=== PATIENT | male | born 1930 | race Caucasian/White ===

== ENCOUNTER 2017-09-21 22:29 | Observation (INO) | payer MEDICARE, OTHER ==
--- NOTE | 2017-09-22 | EDM.PDOC ---
ED HPI GENERAL MEDICAL PROBLEM - General Chief Complaint: Abdominal Pain Stated Complaint: CHEST PAIN Time Seen by Provider: 09/21/17 23:56 Source of Information: Reports: Patient History Limitations: Reports: No Limitations - History of Present Illness INITIAL COMMENTS - FREE TEXT/NARRATIVE: Pt arrived with pain in the lower abdoman. He was lite headed today. He was quite weak prior to leaving the home. He wa seen in the [place] ER on Friday nit. Onset: Other (Problems started Friday nit. ) Duration: Hour(s): Location: Reports: Abdomen Associated Symptoms: Reports: Other (loose stools) upper abdominal pain Pain Score (Numeric/FACES): 5 - Related Data Allergies Allergy/AdvReac Type Severity Reaction Status Date / Time etodolac [From [facility]] Allergy Rash Verified 09/21/17 22:40 Penicillins Allergy Rash Verified 09/21/17 22:40 Home Meds: Home Meds Acetaminophen [Tylenol Extra Strength] 500 mg PO Q6H PRN 03/17/15 [History] Aspirin [Low Dose Aspirin EC] 81 mg PO DAILY 03/17/15 [History] Escitalopram [Lexapro] 20 mg PO DAILY 03/17/15 [History] Insulin Lispro Prot/Lispro [HumaLOG Mix 75-25] 22 units SQ WITHBREAKFAST [History] Insulin Lispro [HumaLOG] 20 units SQ BEDTIME 03/17/15 [History] Metoprolol Tartrate [Lopressor] 25 mg PO BID 03/17/15 [History] Nitroglycerin [Nitrostat] 0.4 mg SL ASDIRECTED 03/17/15 [History] Tamsulosin [Flomax] 0.4 mg PO DAILY 03/17/15 [History] atorvaSTATin [Lipitor] 40 mg PO DAILY 03/17/15 [History] Clopidogrel Bisulfate [Clopidogrel] 75 mg PO DAILY 01/13/16 [History] Ergocalciferol (Vitamin D2) [Vitamin D2] 50,000 units PO WEEKLY 09/21/17 [ History] Furosemide 40 mg PO DAILY 09/21/17 [History] Gabapentin [Neurontin] 100 mg PO BEDTIME 09/21/17 [History] Isosorbide Mononitrate [Isosorbide Mononitrate ER] 60 mg PO DAILY 09/21/17 [ History] Past Medical History HEENT History: Reports: Cataract Cardiovascular History: Reports: Bypass, CAD, High Cholesterol, Hypertension, Stents, Other (See Below) Gastrointestinal History: Reports: Chronic Constipation, Hemorrhoids Genitourinary History: Reports: Renal Calculus Musculoskeletal History: Reports: Arthritis, Back Pain, Chronic, Neck Pain, Chronic Neurological History: Reports: Other (See Below) Other Neuro History: , broken neck, spinal stenosis Psychiatric History: Reports: Depression Endocrine/Metabolic History: Reports: Diabetes, Type II Hematologic History: Reports: Blood Transfusion(s) Dermatologic History: Reports: Other (See Below) Other Dermatologic History: dry skin - Infectious Disease History Infectious Disease History: Reports: Chicken Pox, Measles, Mumps - Past Surgical History HEENT Surgical History: Reports: Cataract Surgery Cardiovascular Surgical History: Reports: AAA Repair, Coronary Artery Bypass, Coronary Artery Stent, Other (See Below) Other Cardiovascular Surgeries/Procedures: x5 stents placed Social & Family History - Tobacco Use Smoking Status *Q: Never Smoker - Caffeine Use Caffeine Use: Reports: Coffee - Recreational Drug Use Recreational Drug Use: No ED ROS GENERAL - Review of Systems Review Of Systems: See Below Constitutional: Reports: Weakness HEENT: Reports: No Symptoms Respiratory: Reports: No Symptoms Cardiovascular: Reports: Lightheadedness Endocrine: Reports: No Symptoms GI/Abdominal: Reports: Abdominal Pain, Diarrhea : Reports: No Symptoms Musculoskeletal: Reports: No Symptoms Skin: Reports: No Symptoms Neurological: Reports: Dizziness, Weakness ED EXAM, GI/ABD - Physical Exam Exam: See Below Text/Narrative:: pt arrived after having sevral episodes of dizZiness and near syncope. He was seen at the er in [place] Friday and there was a possiblity of a tia. Exam Limited By: No Limitations General Appearance: Alert, No Apparent Distress, Other ( Pupils are equal and reactive. ) Ears: Normal TMs Nose: Normal Inspection Throat/Mouth: Normal Inspection Head: Atraumatic Neck: Normal Inspection Respiratory/Chest: No Respiratory Distress Cardiovascular: Regular Rate, Rhythm, Systolic Murmur, Other (pt has a rt bundle branch block on his ekg. He has a loud systolic murmur--probable aortic stenosis) GI/Abdominal Exam: Soft, Tender, Other (Pt has tenderness in the lower abdoman. ) (Male) Exam: Deferred Rectal (Males) Exam: Deferred Back Exam: Normal Inspection Extremities: Normal Inspection Neurological: Alert, Oriented, Normal Cognition Course - Vital Signs Last Recorded V/S: Last Vital Signs Temp 36.3 C 09/21/17 23:05 Pulse 61 09/21/17 23:05 Resp 14 09/21/17 23:05 BP 187/64 H 09/21/17 23:05 Pulse Ox 97 09/21/17 23:05 Orthostatic Blood Pressure [ 116/43 Standing] Orthostatic Blood Pressure [ 173/56 Sitting] Orthostatic Blood Pressure [ 193/67 Supine] - Orders/Labs/Meds Orders: Active Orders 24 hr Category Date Time Status EKG Documentation Completion [RC] ASDIRECTED Care 09/21/17 23:06 Active Orthostatic Vital Signs [RC] ASDIRECTED Care 09/21/17 23:47 Active Abdomen Pelvis wo Cont [CT] Stat Exams 09/21/17 23:55 Taken Abdomen Pelvis wo Cont [CT] Stat Exams 09/22/17 00:10 Taken Abdomen Series w Chest 1V [CR] Urgent Exams 09/21/17 23:43 Stop Req Chest 1V Frontal [CR] Stat Exams 09/22/17 01:06 Ordered UA W/MICROSCOPIC [URIN] Urgent Lab 09/22/17 00:05 Ordered EKG 12 Lead [EK] Routine Ther 09/21/17 23:06 Ordered Labs: Laboratory Tests 09/21/17 09/21/17 09/21/17 Range/Units 23:28 23:28 23:28 WBC 7.8 (4.5-11.0) K/uL RBC 4.53 (4.30-5.90) M/uL Hgb 13.5 (12.0-15.0) g/dL Hct 39.8 L (40.0-54.0) % MCV 88 (80-98) fL MCH 30 (27-31) pg MCHC 34 (32-36) % Plt Count 150 (150-400) K/uL Neut % (Auto) 73 H (36-66) % Lymph % (Auto) 14 L (24-44) % [place] % (Auto) 11 H (2-6) % Eos % (Auto) 2 (2-4) % Baso % (Auto) 1 (0-1) % Sodium 141 (140-148) mmol/L Potassium 3.8 (3.6-5.2) mmol/L Chloride 104 (100-108) mmol/L Carbon Dioxide 29 (21-32) mmol/L Anion Gap 8.4 (5.0-14.0) mmol/L BUN 37 H (7-18) mg/dL Creatinine 2.3 H (0.8-1.3) mg/dL Est Cr Clr Drug Dosing 24.10 mL/min Estimated GFR (MDRD) 27 L (>60) Glucose 120 H (74-106) mg/dL Calcium 8.5 (8.5-10.1) mg/dL Total Bilirubin 0.5 (0.2-1.0) mg/dL AST 24 (15-37) U/L ALT 35 (12-78) U/L Alkaline Phosphatase 55 (46-116) U/L C-Reactive Protein 0.15 (0.0-0.3) mg/dL Total Protein 6.1 L (6.4-8.2) g/dL Albumin 3.1 L (3.4-5.0) g/dL Globulin 3.0 (2.3-3.5) g/dL Albumin/Globulin Ratio 1.0 L (1.2-2.2) Urine Color Urine Appearance Urine pH (4.5-8.0) Ur Specific [place] (1.008-1.030) Urine Protein (NEGATIVE) mg/dL Urine Glucose (UA) (NEGATIVE) mg/dL Urine Ketones (NEGATIVE) mg/dL Urine Occult Blood (NEGATIVE) Urine Nitrite (NEGAITVE) Urine Bilirubin (NEGATIVE) Urine Urobilinogen (NORMAL) mg/dL Ur Leukocyte Esterase (NEGATIVE) Urine RBC (0-5) Urine WBC (0-5) Ur Epithelial Cells Amorphous Sediment Urine Bacteria Urine Mucus 09/22/17 Range/Units 00:05 WBC (4.5-11.0) K/uL RBC (4.30-5.90) M/uL Hgb (12.0-15.0) g/dL Hct (40.0-54.0) % MCV (80-98) fL MCH (27-31) pg MCHC (32-36) % Plt Count (150-400) K/uL Neut % (Auto) (36-66) % Lymph % (Auto) (24-44) % [place] % (Auto) (2-6) % Eos % (Auto) (2-4) % Baso % (Auto) (0-1) % Sodium (140-148) mmol/L Potassium (3.6-5.2) mmol/L Chloride (100-108) mmol/L Carbon Dioxide (21-32) mmol/L Anion Gap (5.0-14.0) mmol/L BUN (7-18) mg/dL Creatinine (0.8-1.3) mg/dL Est Cr Clr Drug Dosing mL/min Estimated GFR (MDRD) (>60) Glucose (74-106) mg/dL Calcium (8.5-10.1) mg/dL Total Bilirubin (0.2-1.0) mg/dL AST (15-37) U/L ALT (12-78) U/L Alkaline Phosphatase (46-116) U/L C-Reactive Protein (0.0-0.3) mg/dL Total Protein (6.4-8.2) g/dL Albumin (3.4-5.0) g/dL Globulin (2.3-3.5) g/dL Albumin/Globulin Ratio (1.2-2.2) Urine Color Yellow Urine Appearance Clear Urine pH 6.0 (4.5-8.0) Ur Specific [place] 1.010 (1.008-1.030) Urine Protein 100 H (NEGATIVE) mg/dL Urine Glucose (UA) 100 H (NEGATIVE) mg/dL Urine Ketones Negative (NEGATIVE) mg/dL Urine Occult Blood Negative (NEGATIVE) Urine Nitrite Negative (NEGAITVE) Urine Bilirubin Negative (NEGATIVE) Urine Urobilinogen 1 (NORMAL) mg/dL Ur Leukocyte Esterase Negative (NEGATIVE) Urine RBC 0-5 (0-5) Urine WBC 0-5 (0-5) Ur Epithelial Cells Rare Amorphous Sediment Not seen Urine Bacteria Few Urine Mucus Not seen - Re-Assessments/Exams Free Text/Narrative Re-Assessment/Exam: 09/22/17 01:27 pt has a creatnine of 2.3 which is not new for him. He has a loud systolic murmur which may be from a aortic a stenosis. A cat scan of the abdoman was neg. His ekg showed a rt bundle branch block. In the ambulance on friday nit he had a 4 second run of vtach. will admit and mildly hydrate and look at the aortic valve issue. 09/22/17 01:31 Departure - Departure Time of Disposition: 01:32 Disposition: Admitted As Inpatient 66 Condition: Fair Clinical Impression: Systolic murmur, Postural hypotension, Renal insufficiency - Discharge Information Referrals: PCP,None [Primary Care Provider] - Forms: ED Department Discharge Care Plan Goals: admit to Dr Parikh - My Orders Last 24 Hours: My Active Orders 09/21/17 23:06 EKG Documentation Completion [RC] ASDIRECTED EKG 12 Lead [EK] Routine 09/21/17 23:43 Abdomen Series w Chest 1V [CR] Urgent 09/21/17 23:47 Orthostatic Vital Signs [RC] ASDIRECTED 09/21/17 23:55 Abdomen Pelvis wo Cont [CT] Stat 09/22/17 00:05 UA W/MICROSCOPIC [URIN] Urgent 09/22/17 00:10 Abdomen Pelvis wo Cont [CT] Stat 09/22/17 01:06 Chest 1V Frontal [CR] Stat - Assessment/Plan Last 24 Hours: My Active Orders 09/21/17 23:06 EKG Documentation Completion [RC] ASDIRECTED EKG 12 Lead [EK] Routine 09/21/17 23:43 Abdomen Series w Chest 1V [CR] Urgent 09/21/17 23:47 Orthostatic Vital Signs [RC] ASDIRECTED 09/21/17 23:55 Abdomen Pelvis wo Cont [CT] Stat 09/22/17 00:05 UA W/MICROSCOPIC [URIN] Urgent 09/22/17 00:10 Abdomen Pelvis wo Cont [CT] Stat 09/22/17 01:06 Chest 1V Frontal [CR] Stat
[2017-09-22] MEDS ORDERED: Acetaminophen 325 MG Tab PO ONE (01:43)
[2017-09-22] MEDS ORDERED: Sodium Chloride 0.9% 1,000 ML IV SCH (01:45)
[2017-09-22] MEDS ORDERED: Acetaminophen 325 MG Tab PO PRN (02:44)
[2017-09-22] MEDS: Sodium Chloride 0.9% 1,000 ML IV SCH ×2 (03:42→11:56)
[2017-09-22] MEDS ORDERED: Furosemide 40 MG Tab PO SCH (09:00)
[2017-09-22] MEDS ORDERED: Isosorbide Mononitrate 30 MG Tab.ER PO SCH (09:00)
[2017-09-22] MEDS ORDERED: CLOPIDOGREL 75 MG PO SCH (09:00)
[2017-09-22] MEDS ORDERED: atorvaSTATin 20 MG Tab PO SCH (09:00)
[2017-09-22] MEDS ORDERED: Escitalopram 20 MG Tab PO SCH (09:00)
[2017-09-22] MEDS ORDERED: Aspirin 81 MG Tab.EC PO SCH (09:00)
[2017-09-22 10:40] VITALS: BP 197/62
--- NOTE | 2017-09-22 11:17 | CR ---
Chest 1V Frontal INDICATION: dizziness FINDINGS: Comparison 10/13/2012. Sternotomy with mediastinal clips. No focal infiltrate. Chest otherwi se negative.
[2017-09-22] MEDS ORDERED: Furosemide 40 MG Tab*POM PO SCH (12:00)
[2017-09-22] MEDS ORDERED: ATORVASTATIN 40MG PO SCH (12:00)
[2017-09-22] MEDS ORDERED: ISOSORBIDE MONONITRATE 60 MG PO SCH (12:00)
[2017-09-22] MEDS ORDERED: ESCITALOPRAM 20 MG PO SCH (12:00)
--- NOTE | 2017-09-22 13:10 | HP ---
HISTORY OF PRESENT ILLNESS: An 87-year-old has had a significant coronary artery disease history along with diabetes, previous AAA repair in the past, had an episode 2 days ago when he was in restaurant, also became quite pale. He had a near syncopal episode and was complaining of abdominal pain, was brought into the emergency room in [place]. CT scan of the abdomen was unremarkable. EKG was unchanged. Thought maybe he had a TIA and have him follow up with his regular [facility] doctor. He had another episode tonight where he complained of left-sided abdominal pain, a little bit of nausea but no vomiting. No diarrhea or constipation. He thought maybe he had food poisoning, but his ate the same food, and she has had no trouble. He has had no fever. No urinary problems. He has had a history of kidney stones in the past and states that this feels different. By the time he got here, his abdominal pain was better and apparently he felt dizzy also, but has had no chest pain, although he does complain of some shortness of breath, was evaluated by emergency room physician, was noted to have significant systolic murmur. Apparently, he had an echocardiogram done at [place] about a year and a half ago, and they want him to do something further. He did not know what it was, but he was going back to [place] and did not have anything done, not sure exactly what they found. He was not sure. It sounds like he does have chronic kidney disease, and this has progressed. He had not really been drinking any alcohol, but then was drinking a couple of beers a day, but they have completely eliminated this at this point. PAST MEDICAL HISTORY: 1. Coronary artery disease, status post five-vessel CABG in the past. 2. Type 2 diabetes mellitus, on insulin. 3. Aortobifemoral graft in the past. 4. He has had a history of kidney stones, but otherwise no other abdominal surgery he states. 5. History of chronic back pain and neck pain with cervical spondylosis. 6. History of depression, possible posttraumatic stress disorder. 7. Essential hypertension. 8. Peripheral vascular disease. 9. Sleep apnea. 10.Tremor. 11.Looking at old records, it sounds like he has had stents. I do not see a history of bypass surgery, although he had first stents, and he also had bypass surgery. 12.He has also had eye surgery. MEDICATIONS: 1. Atorvastatin 40 mg daily. 2. Nitro p.r.n., but he has not had to take. 3. Lasix 40 mg daily. 4. Gabapentin 100 mg every evening. 5. Amlodipine 5 mg 2 tablets daily. 6. Vitamin D. 7. Topical triamcinolone p.r.n. 8. Bactroban p.r.n. 9. Lexapro 20 mg daily. 10.Humalog insulin 75/20. 11.Lispro insulin, not sure he is taking this. 12.Acetaminophen p.r.n. 13.Aspirin 81 mg daily. 14.Plavix 75 mg daily. ALLERGIES: TO PENICILLIN, LODINE, VALSARTAN. SOCIAL HISTORY: He is a nonsmoker. He has had a recent consumption of 2 beers a day, but this has recently been stopped. FAMILY HISTORY: Father had tremor. Mother diabetes. History of diabetes and heart disease in father. REVIEW OF SYSTEMS: Denies headaches, vision changes. Denies any chest pain, but has had some shortness of breath, a little bit of nausea but no vomiting. No diarrhea or constipation. Bloody black stools. No urinary problems reported. Denies any significant swelling in his legs. No skin problems other than above. Neurologic complaints as above. OBJECTIVE: VITAL SIGNS: Initial blood pressure was 219/74, now is 195/61, pulse 60, respirations 12 to 15, O2 sat 96% on room air. GENERAL: The patient seems to be fairly alert and oriented. Cranial nerves 2 through 12 grossly intact. Eyes are unremarkable. Pharynx is clear. NECK: No adenopathy, thyromegaly, JVD, or carotid bruits. LUNGS: Clear. HEART: Regular with a grade 3/6 systolic murmur, apparently, he has had for many years. ABDOMEN: Soft. Some slight discomfort on the left side. No mass, organomegaly palpated. No distention. Currently he has pain on exam, is better than it was earlier. EXTREMITIES: He does have some mild edema in his ankles. He does have some dry skin. Moves all extremities equally. LABORATORY DATA: White count 7.8, hemoglobin 13.5, platelets 150,000, 73% neutrophils, 14% lymphocytes, 11% monocytes. Sodium 141, potassium 3.8, chloride 104, BUN was 37, creatinine 2.3, glucose 120. Liver function was normal. Urinalysis: 0-5 white cells and red cells. He did have some sugar and protein in his urine. IMAGING DATA: CT scan of abdomen and pelvis, moderate enlargement of the prostate gland. Sigmoid diverticulosis without evidence of diverticulitis. ASSESSMENT: 1. Near-syncope, more so 2 days ago with some dizziness today, etiology uncertain, but the question of it is related to his murmur, which we will get an echocardiogram and watch him on telemetry. Apparently en route by ambulance Friday night, he had episode of short run of ventricular tachycardia. I did talk to the patient. He does desire DNR/DNI. 2. Abdominal pain. Two negative CAT scans, one here and one in [place] 2 days ago. Etiology uncertain. 3. Coronary artery disease, previous stents, bypass surgery. 4. Aortobifemoral bypass. 5. Type 2 diabetes mellitus. 6. Chronic kidney disease, which has recently worsened. PLAN: Transfers care to hospitalist service in the morning. We will admit him under observation. Anticipate less than 2 midnight stays. Winston Parikh MD /[id number]
--- NOTE | 2017-09-22 14:41 | PCM.DCSUM1 ---
Discharge Summary - Hospital Course Brief History: 87-year-old male with insulin-dependent diabetes mellitus, stage III/IV chronic kidney disease and ischemic heart disease who presented with left upper quadrant abdominal pain. He was admitted for observation and further workup. - Discharge Data Discharge Date: 09/22/17 Discharge Disposition: Home, Self-Care 01 Condition: Fair - Discharge Diagnosis/Problem(s) (1) LUQ abdominal pain SNOMED Code(s): 535162663 ICD Code: R10.12 - LEFT UPPER QUADRANT PAIN Status: Acute (2) Postural hypotension SNOMED Code(s): 29598150 ICD Code: I95.1 - ORTHOSTATIC HYPOTENSION Status: Acute (3) Stage 3 chronic kidney disease SNOMED Code(s): 877123710 ICD Code: N18.3 - CHRONIC KIDNEY DISEASE, STAGE 3 (MODERATE) Status: Chronic (4) Moderate aortic stenosis SNOMED Code(s): 97180406 ICD Code: I35.0 - NONRHEUMATIC AORTIC (VALVE) STENOSIS Status: Chronic (5) Type 2 diabetes mellitus SNOMED Code(s): 23495341 ICD Code: E11.9 - TYPE 2 DIABETES MELLITUS WITHOUT COMPLICATIONS Status: Chronic Qualifiers: Diabetes mellitus assisted insulin use: with oysterman use Diabetes mellitus complication status: with unspecified complications Qualified Code(s) : E11.8 - Type 2 diabetes mellitus with unspecified complications; Z79.4 - manager intermediate (current) use of insulin (6) HTN (hypertension) SNOMED Code(s): 69737432 ICD Code: I10 - ESSENTIAL (PRIMARY) HYPERTENSION Status: Chronic Qualifiers: Hypertension type: unspecified Qualified Code(s): I10 - Essential (primary ) hypertension - Patient Summary/Data Hospital Course: Bryson presented to the emergency room yesterday with left upper quadrant abdominal pain. He had some nausea but no vomiting or fever. Workup in the emergency room did not reveal a cause for his abdominal pain. Laboratory testing was stable and his white count was normal. CT of the abdomen did not show abnormality to explain his pain. He was admitted for observation. Overnight there were no acute issues. He did have some mild residual pain the morning after admission but this was relieved after a large bowel movement. He has not had recurrence of the pain. He has been up and walking around and does not have any symptoms of chest pain, lightheadedness or dizziness. He feels well at this time. There were no abnormalities noted on telemetry overnight. Vital signs have been stable other than intermittent elevations of his blood pressure. He did have a loud systolic murmur concerning for aortic stenosis and we did perform an echocardiogram the morning of discharge. This showed moderate aortic stenosis as well as mild to moderate aortic insufficiency. Ejection fraction is low normal at this time at around 50%. Because he has been up and walking around without symptoms I doubt that these findings were the cause for his presyncope a few nights ago and mild orthostasis yesterday. The exact cause for his abdominal pain is not entirely clear. Differential could include constipation as his pain resolved after a large bowel movement versus potentially intestinal angina versus possibly some gastritis. Because he feels well at this time I'm not going to initiate any new treatment. He does have follow-up scheduled tomorrow with his primary care physician. He has follow-up with nephrology and cardiology in the next month. He will be discharged home with his . No medication changes are made at this time. - Patient Instructions Diet: Heart Healthy Diet Activity: As Tolerated Showering/Bathing: May Shower Notify Provider of: Fever, Increased Pain Other/Special Instructions: 1. You were in the hospital for observation after an episode of left upper quadrant abdominal pain. The pain has resolved without significant intervention. The exact cause for the pain is not entirely clear but constipation could be considered. The CT scan of the abdomen did not show any acute findings. I would recommend utilizing [id number] medication such as stool softeners and/or miralax to maintain a normal bowel regimen. 2. We did complete an echocardiogram to evaluate your aortic valve. The ultrasound test of your heart showed that you have moderate aortic stenosis as well as mild to moderate aortic insufficiency. Your left ventricular function is normal to very slightly reduced at this time. You should discuss these findings with your workers compensation coordinator at your upcoming visit. 3. Please continue your other medications as previously prescribed. 4. Follow-up as scheduled with your primary care physician, kidney doctor and workers compensation coordinator. 5. Seek medical attention if you develop fever greater than 101, your abdominal pain returns and is severe or if you develop acute shortness of breath or chest pain/ pressure. - Discharge Plan Home Medications: Home Meds Acetaminophen [Tylenol Extra Strength] 500 mg PO Q6H PRN 03/17/15 [History] Aspirin [Low Dose Aspirin EC] 81 mg PO DAILY 03/17/15 [History] Escitalopram [Lexapro] 20 mg PO DAILY 03/17/15 [History] Insulin Lispro Prot/Lispro [HumaLOG Mix 75-25] 22 units SQ WITHBREAKFAST [History] Insulin Lispro [HumaLOG] 20 units SQ BEDTIME 03/17/15 [History] Metoprolol Tartrate [Lopressor] 25 mg PO BID 03/17/15 [History] Nitroglycerin [Nitrostat] 0.4 mg SL ASDIRECTED 03/17/15 [History] Tamsulosin [Flomax] 0.4 mg PO DAILY 03/17/15 [History] atorvaSTATin [Lipitor] 40 mg PO DAILY 03/17/15 [History] Clopidogrel Bisulfate [Clopidogrel] 75 mg PO DAILY 01/13/16 [History] Ergocalciferol (Vitamin D2) [Vitamin D2] 50,000 units PO WEEKLY 09/21/17 [ History] Furosemide 40 mg PO DAILY 09/21/17 [History] Gabapentin [Neurontin] 100 mg PO BEDTIME 09/21/17 [History] Isosorbide Mononitrate [Isosorbide Mononitrate ER] 60 mg PO DAILY 09/21/17 [ History] Patient Handouts: Aortic Valve Stenosis, Constipation, Adult Referrals: Noe Toscano MD [Physician] - 09/23/17 10:20 am Twin Cavazos MD [Ordering Only Provider] - 10/24/17 3:00 pm Angelita Chopra MD [Physician] - 10/15/17 2:30 pm - Discharge Summary/Plan Comment DC Time >30 min.: No (25) - Patient Data Vitals - Most Recent: Last Vital Signs Temp 35.6 C 09/22/17 14:00 Pulse 73 09/22/17 14:00 Resp 18 09/22/17 14:00 BP 197/62 H 09/22/17 10:00 Pulse Ox 96 09/22/17 14:00 Orthostatic Blood Pressure [ 116/43 Standing] Orthostatic Blood Pressure [ 173/56 Sitting] Orthostatic Blood Pressure [ 193/67 Supine] Weight - Most Recent: 81.9 kg I&O - Last 24 hours: Intake & Output 05/09/22/17 09/22/17 22:59 06:59 14:59 Intake Total 240 Output Total 300 Balance -300 240 Lab Results - Last 24 hrs: Laboratory Results - last 24 hr 09/21/17 09/21/17 09/21/17 Range/Units 23:28 23:28 23:28 WBC 7.8 (4.5-11.0) K/uL RBC 4.53 (4.30-5.90) M/uL Hgb 13.5 (12.0-15.0) g/dL Hct 39.8 L (40.0-54.0) % MCV 88 (80-98) fL MCH 30 (27-31) pg MCHC 34 (32-36) % Plt Count 150 (150-400) K/uL Neut % (Auto) 73 H (36-66) % Lymph % (Auto) 14 L (24-44) % [place] % (Auto) 11 H (2-6) % Eos % (Auto) 2 (2-4) % Baso % (Auto) 1 (0-1) % Sodium 141 (140-148) mmol/L Potassium 3.8 (3.6-5.2) mmol/L Chloride 104 (100-108) mmol/L Carbon Dioxide 29 (21-32) mmol/L Anion Gap 8.4 (5.0-14.0) mmol/L BUN 37 H (7-18) mg/dL Creatinine 2.3 H (0.8-1.3) mg/dL Est Cr Clr Drug Dosing 24.10 mL/min Estimated GFR (MDRD) 27 L (>60) Glucose 120 H (74-106) mg/dL Calcium 8.5 (8.5-10.1) mg/dL Total Bilirubin 0.5 (0.2-1.0) mg/dL AST 24 (15-37) U/L ALT 35 (12-78) U/L Alkaline Phosphatase 55 (46-116) U/L C-Reactive Protein 0.15 (0.0-0.3) mg/dL Total Protein 6.1 L (6.4-8.2) g/dL Albumin 3.1 L (3.4-5.0) g/dL Globulin 3.0 (2.3-3.5) g/dL Albumin/Globulin Ratio 1.0 L (1.2-2.2) Urine Color Urine Appearance Urine pH (4.5-8.0) Ur Specific [place] (1.008-1.030) Urine Protein (NEGATIVE) mg/dL Urine Glucose (UA) (NEGATIVE) mg/dL Urine Ketones (NEGATIVE) mg/dL Urine Occult Blood (NEGATIVE) Urine Nitrite (NEGAITVE) Urine Bilirubin (NEGATIVE) Urine Urobilinogen (NORMAL) mg/dL Ur Leukocyte Esterase (NEGATIVE) Urine RBC (0-5) Urine WBC (0-5) Ur Epithelial Cells Amorphous Sediment Urine Bacteria Urine Mucus 09/22/17 09/22/17 09/22/17 Range/Units 00:05 06:21 06:21 WBC 9.3 (4.5-11.0) K/uL RBC 4.57 (4.30-5.90) M/uL Hgb 13.4 (12.0-15.0) g/dL Hct 39.9 L (40.0-54.0) % MCV 87 (80-98) fL MCH 29 (27-31) pg MCHC 34 (32-36) % Plt Count 147 L (150-400) K/uL Neut % (Auto) (36-66) % Lymph % (Auto) (24-44) % [place] % (Auto) (2-6) % Eos % (Auto) (2-4) % Baso % (Auto) (0-1) % Sodium 139 L (140-148) mmol/L Potassium 3.8 (3.6-5.2) mmol/L Chloride 104 (100-108) mmol/L Carbon Dioxide 25 (21-32) mmol/L Anion Gap 13.8 (5.0-14.0) mmol/L BUN 34 H (7-18) mg/dL Creatinine 2.1 H (0.8-1.3) mg/dL Est Cr Clr Drug Dosing 26.39 mL/min Estimated GFR (MDRD) 30 L (>60) Glucose 207 H (74-106) mg/dL Calcium 8.3 L (8.5-10.1) mg/dL Total Bilirubin (0.2-1.0) mg/dL AST (15-37) U/L ALT (12-78) U/L Alkaline Phosphatase (46-116) U/L C-Reactive Protein (0.0-0.3) mg/dL Total Protein (6.4-8.2) g/dL Albumin (3.4-5.0) g/dL Globulin (2.3-3.5) g/dL Albumin/Globulin Ratio (1.2-2.2) Urine Color Yellow Urine Appearance Clear Urine pH 6.0 (4.5-8.0) Ur Specific [place] 1.010 (1.008-1.030) Urine Protein 100 H (NEGATIVE) mg/dL Urine Glucose (UA) 100 H (NEGATIVE) mg/dL Urine Ketones Negative (NEGATIVE) mg/dL Urine Occult Blood Negative (NEGATIVE) Urine Nitrite Negative (NEGAITVE) Urine Bilirubin Negative (NEGATIVE) Urine Urobilinogen 1 (NORMAL) mg/dL Ur Leukocyte Esterase Negative (NEGATIVE) Urine RBC 0-5 (0-5) Urine WBC 0-5 (0-5) Ur Epithelial Cells Rare Amorphous Sediment Not seen Urine Bacteria Few Urine Mucus Not seen Med Orders - Current: Current Medications Acetaminophen (Tylenol) 650 mg PO Q4H PRN PRN Reason: Pain (Mild 1-3)/fever Aspirin (Halfprin) 81 mg PO DAILY [facility] Last Admin: 09/22/17 12:00 Dose: Not Given Clopidogrel Bisulfate (Plavix) 75 mg PO DAILY [facility] [place] Last Admin: 09/22/17 12:00 Dose: 75 mg Escitalopram Oxalate (Lexapro) 20 mg PO DAILY [facility] [place] Last Admin: 09/22/17 12:02 Dose: 20 mg Furosemide (Lasix) 40 mg PO DAILY [facility] Last Admin: 09/22/17 12:01 Dose: 40 mg Gabapentin (Neurontin) 100 mg PO BEDTIME [facility] Sodium Chloride (Normal Saline) 1,000 mls @ 100 mls/hr IV ASDIRECTED [facility] Last Admin: 09/22/17 11:56 Dose: 100 mls/hr Atorvastatin 40mg 1 each PO DAILY [facility] [place] Last Admin: 09/22/17 12:02 Dose: 1 each Isosorbide Mononitrate Er 60mg *Pom* 1 each PO DAILY@0730 [facility] Last Admin: 09/22/17 12:02 Dose: 1 each Discontinued Medications Acetaminophen (Tylenol) 650 mg PO NOW ONE Stop: 09/22/17 01:44 Last Admin: 09/22/17 02:08 Dose: 650 mg Atorvastatin Calcium (Lipitor) 40 mg PO DAILY [facility] Escitalopram Oxalate (Lexapro) 20 mg PO DAILY [facility] Furosemide (Lasix) 40 mg PO DAILY [facility] [place] Sodium Chloride (Normal Saline) 1,000 mls @ 100 mls/hr IV ASDIRECTED [facility] Last Admin: 09/22/17 02:20 Dose: 100 mls/hr Isosorbide Mononitrate (Imdur) 60 mg PO DAILY [facility] - Exam Quality Assessment: Denies: Supplemental Oxygen General: Reports: Alert, Oriented, Cooperative, No Acute Distress Neck: Reports: Supple Lungs: Reports: Clear to Auscultation, Normal Respiratory Effort Cardiovascular: Reports: Regular Rate, Regular Rhythm, Murmurs GI/Abdominal Exam: Normal Bowel Sounds, Soft, Non-Tender, No Distention Extremities: No Pedal Edema Psy/Mental Status: Reports: Alert, Normal Affect
[2017-09-22] MEDS ORDERED: GABAPENTIN 100 MG PO SCH (21:00)
== END 2017-09-22 16:04 | disposition home or self-care (01) ==
LOC: JP.ED 22:29 → JP.MS 09-22 03:02
PROVIDERS: ADMIT Family Medicine; ATTEND Internal Medicine
DX: R10.12 Left upper quadrant pain (principal); R55 Syncope and collapse; I12.9 Hypertensive chronic kidney disease with stage 1 through stage 4 chronic kidney disease, or unspecified chronic kidney disease; E11.22 Type 2 diabetes mellitus with diabetic chronic kidney disease; I25.9 Chronic ischemic heart disease, unspecified; I95.1 Orthostatic hypotension; N18.3 Chronic kidney disease, stage 3 (moderate); I35.0 Nonrheumatic aortic (valve) stenosis; I35.1 Nonrheumatic aortic (valve) insufficiency; I25.10 Atherosclerotic heart disease of native coronary artery without angina pectoris; F32.9 Major depressive disorder, single episode, unspecified; E11.51 Type 2 diabetes mellitus with diabetic peripheral angiopathy without gangrene; G47.30 Sleep apnea, unspecified; E78.00 Pure hypercholesterolemia, unspecified; M19.90 Unspecified osteoarthritis, unspecified site; Z79.4 Long term (current) use of insulin; Z79.899 Other long term (current) drug therapy; Z79.82 Long term (current) use of aspirin; Z79.02 Long term (current) use of antithrombotics/antiplatelets; Z95.1 Presence of aortocoronary bypass graft; Z98.890 Other specified postprocedural states; Z88.0 Allergy status to penicillin; Z88.8 Allergy status to other drugs, medicaments and biological substances
CPT/HCPCS: 36415; 71045; 74176; 80048; 80053; 81001; 82962; 85025; 85027; 86140; 93005; 93306; 96360; 96361; 99285; A9270; G0378; J7030